=== PATIENT | male | born 2000 | race Caucasian/White ===

== ENCOUNTER 2021-11-19 13:27 | Outpatient (CLI) | payer BC, SELFPAY ==
--- NOTE | ~2021-11-19 | US_ITS ---
EXAMINATION: US scrotum doppler DATE: 11/19/2021 14:45 INDICATION: Right testicular pain. TECHNIQUE: Grayscale and Doppler ultrasound images of the testes were obtained. COMPARISON: None. FINDINGS: The right testis measures 4.5 x 3.0 x 2.1 cm. The left testis measures 3.9 x 3.0 x 2.2 cm. There is normal vascular flow to both testes. The right epididymis is normal with normal vascular benedicto w. The left epididymis is normal with normal vascular flow. There is a hydrocele. There is a left-pierre ed varicocele. IMPRESSION: 1. No etiology for the patient's symptoms. Reviewed, dictated and finalized at location A. L TRANSCRIPTIONIST
== END 2021-11-19 13:28 | disposition home or self-care (01) ==
PROVIDERS: PCP Family Medicine; Visit Provider Family Medicine
DX: N50.811 Right testicular pain (principal); N43.3 Hydrocele, unspecified
CPT/HCPCS: 76870; 93976

== ENCOUNTER → 2022-01-06 15:12 | Outpatient (CLI) | payer BC, SELFPAY ==
--- NOTE | ~2022-01-06 | XR_ITS ---
XR abdomen/kub 1V 01/06/2022 15:51 INDICATION: Right ureteral stone TECHNIQUE: KUB COMPARISON: None FINDINGS: Bowel gas pattern is normal. There is no evidence of free air, mass, organomegaly, ascites or obstruction. No abnormal calculi are seen. The bones appear intact. IMPRESSION: 1: No acute abdominal abnormality identified. Reviewed, dictated and finalized at location B. ANCE OFFICER
== END ==
PROVIDERS: PCP Family Medicine; Visit Provider Urology
DX: N20.1 Calculus of ureter (principal)
CPT/HCPCS: 74018

== ENCOUNTER 2022-01-23 01:01 | Day surgery (SDC) | payer BC, SELFPAY ==
[2022-01-15 14:43] VITALS: BMI 23.6
--- NOTE | 2022-01-15 14:48 | PC.NURSE ---
Report to the Outpatient Waiting Room, entrance under the green pavilion located off [facility], at time 1145 on date 01/23/22. OR Time: 1345. - You and your visitor will be asked a series of questions to screen for COVID 19 for your protection. - A mask is required within the hospital. One visitor will be allowed to accompany the patient into the hospital. Patients visitor will be instructed to remain with patient at all times or leave the building. We will allow the visitor to come back to the postoperative area when patient is ready. Preoperative COVID Testing Requirements: No COVID Test needed if: (proof is required; if not received patient will have Rapid Test prior to entry) - Patient has received COVID Vaccine at least 14 days prior to procedure date or - Patient has positive COVID test result within last 90 days of surgery date. COVID Test needed if above criteria is not met Patients may have clear liquids (water, carbonated beverages, clear teas, apple juice) until 3 hours prior to surgery with a maximum of 20 ounces. - No food from midnight until time of surgery Take the following medications with a SIP of water the morning of surgery: NONE Medications to discontinue per physician: N/A Date to take last dose: N/A Please no make-up, nail divehi, hairspray, perfume, deodorant, or body powder the day of surgery. No jewelry (including any body piercings) or valuables the day of surgery, leave them at home. Please take a shower or bath the night before, or the morning of, surgery with an antibacterial soap. Wear comfortable, loose fitting clothing. - Jewelry must be removed prior to entering the operating room. Rings and piercings that are not removed may be cut off. - The hospital will not accept responsibility for valuables. - Please leave all valuables, including medications, at home the day of surgery. If you are going home after surgery, a licensed fleet driver must drive you home. - NO public transportation without another adult. - We recommend that an adult stay with you for 24 hours following discharge. - We also recommend that you do not drive, make important decision, drink alcoholic beverages, or take any drugs that were not prescribed by your health care provider for at least 24 hours after your discharge time. Follow any additional instructions given to you from your surgeon. Telephone instructions given to BRAYAN RODRIGUEZ and asked if any additional questions and then verbalized understanding. Patient advised to call surgeon office or pre surgery nurse liaison [phone] if any additional questions.
--- NOTE | 2022-01-22 12:20 | WPDANESEPPF ---
Anes - Initial Pre Proc Eval Procedure: Operation Date: 01/23/22 13:45 Proposed Procedures p Cystoscopy, Right Ureteroscopy, Right Stone Extraction, - Milo Tom MD s Possible Holmium Laser Procedure, Possible Right Stent Placement - Milo Tom MD Date/Time: 01/22/22 12:21 Surgeon: Milo Tom MD Pre Op Diagnosis: right ureteral stone Patient Data Age: 21 Gender: M Height: 1.65 m Weight: 64.41 kg Allergies Allergy/AdvReac Type Severity Reaction Status Date / Time tramadol Allergy Intermediate Confusion Verified 01/23/22 12:02 Home Medications Medication Instructions Recorded Confirmed Type No Home Medications 11/26/21 01/23/22 History Patient hx anesthesia problems: none Family hx anesthesia problems: none Results Review: All pre-operative results and documents have been reviewed as part of the pre-operative evaluation. ON LICENSE OF [facility] Past Medical History Medical History (Updated 01/22/22 @ 12:39 by Juan M Weinstein MD) Anxiety Attention deficit hyperactivity disorder, predominantly inattentive type Depression Ureteral stone Family History Family History Mother Breast cancer Grandparent Heart problem Cerebrovascular accident Social History Social History Smoking status: Never smoker Alcohol intake: never Substance use: never Substance use type: does not use Living arrangements: with family Spiritual care concerns: No Anes - Eval Final PreProcedure Day of Procedure 01/22/22 12:21 Patient weight: normal Heart: regular rate and rhythm Lungs: clear to auscultation and normal air movement Airway: Mallampati scale class II Neurological: alert and oriented Last oral intake: >/= 8 hours ASA classification: II Emergent: no Anesthetic plan: proceed Anesthesia type and monitoring: general GIVS and LMA Results Review: All pre-operative results and documents have been reviewed as part of the pre-operative evaluation. Informed Consent: The patient's anesthetic plan and its attendant risks and benefits were discussed with the patient/family/POA. Questions were solicited and answers provided to the satisfaction of the patient/family/POA.
[2022-01-23] VITALS (7 sets, daily range): BP systolic 112–123; BP diastolic 65–77; PULSE 66–86; RESP 10–20; TEMP 36.5–36.8; O2SAT 97–100
--- NOTE | ~2022-01-23 | XR_ITS ---
EXAMINATION: XR fluoroscopy no charge EXAM DATE: 01/23/2022 13:44 INDICATION: Right-sided stone extraction. TECHNIQUE: Fluoroscopy used during right stone extraction performed by Dr. Milo Tom MD. R adiologist was not present for the imaging or procedure. Total fluoroscopic time of 15 seconds. The DAP for this procedure was 0.12 mGym2. A total of 4 images sent to PACS from the exam. FINDINGS: Right ureter was cannulated, wire, catheter extending proximally. Correlate with procedur e note. IMPRESSION: Fluoroscopy used during procedure. Reviewed, dictated and finalized at location A. EE MACHINE TECHNICIAN
--- NOTE | 2022-01-23 06:18 | WPDHPUPDATE1 ---
History and Physical Update Update Date/Time: 01/23/22 06:18 History and Physical has been reviewed, including an updated exam of the patient. There are NO changes in the patient's condition. Risks, benefits, and alternatives have been discussed and questions answered. Patient agrees to proceed with procedure.
[2022-01-23] MEDS: LACTATED RINGERS 1,000 ML 30 ML IV CONT (12:20)
--- NOTE | 2022-01-23 13:52 | P.OP_ITS ---
Procedure Note - Detailed Date of Procedure 01/23/22 Pre-op Diagnosis Right ureteral stones Post-op Diagnosis Same Procedure Performed Cystoscopy, right ureteroscopy with ureteral stone extraction Surgeon Milo Tom MD Anesthesia General Description of Procedure The patient was brought to the operative suite where he is prepped and draped in a routine sterile fashion while in the dorsal lithotomy position after the uneventful induction of a general LMA anesthetic. A 19F rigid cystoscope was placed in the bladder. There are no urethral strictures. His prostatic urethra measures, approximately, 1.0cm with no median lobe enlargement. The bladder mucosa was endoscopically normal without hyperemia or neoplasm. There was a single, orthotopic ureteral orifice bilaterally. A 0.035 glidewire was advanced into the right renal pelvis under fluoroscopy. The distal ureter was dilated with an 8F/10F ureteral dilator. Ureteroscopy was undertaken with a short, tapered, semi-rigid ureteroscope and two stones was extracted with ease using a 1.9F Actimize disposable stone basket. Due to the ease of this manipulation I opted not to place a ureteral stent. The patient's bladder was emptied and was taken to the recovery room having tolerated this procedure well. Drains No Packing No Pathology None sent Complications No immediate complications Condition Stable Disposition PACU
[2022-01-23] MEDS: fentaNYL CITRATE INJ (*CRX) 100 MCG/2 ML VIAL 25 MCG IV PUSH ×4 (14:03→14:23)
--- NOTE | 2022-01-23 14:11 | SUR.PHASEI ---
1410: simple mask removed.
[2022-01-23] MEDS: oxyCODONE HCL (*CRX) 5 MG TAB IR PO (14:50)
== END 2022-01-23 15:08 | disposition home or self-care (01) ==
PROVIDERS: PCP Family Medicine; Visit Provider Urology
PROC: (CPT 52352; principal; 2022-01-23 13:45)
DX: N20.1 Calculus of ureter (principal); F41.8 Other specified anxiety disorders; F90.0 Attention-deficit hyperactivity disorder, predominantly inattentive type
CPT/HCPCS: 52352; 82365; 88300; A9270; C1769; J1100; J2250; J2405; J2704; J3010; J7120; Q9966

== ENCOUNTER 2023-01-08 14:34 | Outpatient (CLI) | payer BC, SELFPAY ==
[2023-01-08 20:30] LABS: Kit Draw Collected
== END 2023-01-08 14:35 | disposition home or self-care (01) ==
LOC: ANHGOSHLAB 14:36
PROVIDERS: PCP Family Medicine; Visit Provider Family Medicine
DX: Z00.00 Encounter for general adult medical examination without abnormal findings (principal); F32.A Depression, unspecified; F41.9 Anxiety disorder, unspecified; R53.83 Other fatigue
CPT/HCPCS: 36415

== ENCOUNTER 2023-11-17 12:29 | Outpatient (CLI) | payer BC, SELFPAY ==
[2023-11-19 19:51] LABS: Immunoglobulin A 196 mg/dL (47-310); TTG IGA AB <1.0 U/mL (<15.0)
== END 2023-11-17 12:30 | disposition home or self-care (01) ==
LOC: ANHGOSHLAB 12:31
PROVIDERS: PCP Family Medicine; Visit Provider Family Medicine
DX: R19.8 Other specified symptoms and signs involving the digestive system and abdomen (principal)
CPT/HCPCS: 36415; 82784; 86364

== ENCOUNTER 2024-02-24 19:05 | Emergency (ER) | payer BC, SELFPAY ==
--- NOTE | ~2024-02-24 | XR_ITS ---
EXAMINATION: XR chest 2V 02/24/2024 19:20 INDICATION: Chest pain PROCEDURE: 2 view chest COMPARISON: No prior studies for comparison. FINDINGS: The lungs are clear. The cardiomediastinal silhouette is within normal limits. There are no pleural effusions. There is no pneumothorax suspected. IMPRESSION: 1: NO ACUTE CARDIOPULMONARY DISEASE. Reviewed, dictated and finalized at location A.
--- NOTE | 2024-02-24 19:12 | ECG_ITS ---
SEE SCANNED COPY FOR CONFIRMED REPORT MTDD
[2024-02-24 19:34] VITALS: BP 117/75; PULSE 72; RESP 18; TEMP 36.7; O2SAT 99
[2024-02-24 19:52] LABS: Basophils Percent Auto 0.2 % (0.2-1.2); Eosinophils Absolute Auto 0.1 K/mm3 (0-0.3); Eosinophils Percent Auto 0.8 % (0-4.4); Hematocrit 43.2 % (42.0-52.0); Hemoglobin 14.8 g/dL (14.0-18.0); Immature Granulocyte Absolute 0.02 K/mm3 (0.00-0.031); Immature Granulocyte Percent A 0.2 % (0-0.5); Lymphocytes Absolute Auto 2.14 K/mm3 (0.9-3.2); Lymphocytes Percent Auto 24.3 % (18.3-44.2); Mean Corpuscular HGB Conc 34.3 g/dl (32-36); Mean Corpuscular Hemoglobin 30.1 pg (26-34); Mean Corpuscular Volume 87.8 fl (80-100); Mean Platelet Volume 9.2 fl (7.4-10.4); Monocytes Absolute Auto 0.9 K/mm3 (0.1-0.6); Monocytes Percent Auto 10.2 % (2.6-8.5); Neutrophils Absolute Auto 5.7 K/mm3 (1.3-6.7); Neutrophils Percent Auto 64.3 % (45.5-73.1); Platelet Count Result 369 k/mm3 (150-375); Red Blood Count 4.92 M/mm3 (4.6-6.20); White Blood Count 8.8 K/mm3 (4.5-10.0)
[2024-02-24 20:03] LABS: INR 0.9; Prothrombin Time 12.9 Seconds (11.1-14.7)
[2024-02-24 20:04] LABS: Alanine Aminotransferase 17 U/L (6-50); Albumin Level 4.9 g/dL (3.5-5.1); Alkaline Phosphatase 72 U/L (38-126); Anion Gap 9 mmol/L (4-12); Aspartate Amino Transferase 24 U/L (17-59); Bilirubin,Total 0.4 mg/dL (0.2-1.3); Blood Urea Nitrogen 16 mg/dL (9-20); Calcium 9.4 mg/dL (8.4-10.2); Carbon Dioxide 23 mmol/L (22-30); Chloride 105 mmol/L (98-107); Estimated CRCL calculation 134 ml/min; Estimated Glomerular Filt Rate > 60; Glucose 94 mg/dL (65-110); Lipase 48 U/L (23-300); Partial Thromboplastin Time 30.9 Seconds (22.3-36.8); Potassium 3.9 mmol/L (3.4-5.0); Sodium 137 mmol/L (137-145)
[2024-02-24 20:15] LABS: Troponin I < 0.012 ng/mL (0.000-0.034)
[2024-02-24 22:48] LABS: Troponin I < 0.012 ng/mL (0.000-0.034)
[2024-02-24 23:53] VITALS: O2SAT 98
[2024-02-25] MEDS: BELLADONNA ALK/PHENOB ELIX 10 ML, MAG HYDROX/ALUMINUM HYD/SIMETH 30 ML, LIDOCAINE HCL 2... PO (01:14)
[2024-02-25] MEDS: ACETAMINOPHEN 500 MG TABLET 1000 MG PO (01:14)
[2024-02-25] MEDS: DICYCLOMINE HCL 10 MG CAPSULE 20 MG PO (01:14)
[2024-02-25] MEDS: FAMOTIDINE 20 MG TABLET PO (01:17)
--- NOTE | 2024-02-25 01:19 | ED.CHESTPAIN ---
HPI - Chest Pain General Chief Complaint: Chest Pain Stated Complaint: epigastric pain Time Seen by Provider: 02/25/24 00:00 Source: patient Mode of arrival: ambulatory Limitations: no limitations History of Present Illness HPI narrative: Patient is a 23-year-old male who presents the ED with report of epigastric pain, chest pain. Patient reports having ongoing and intermittent pain for the last 3 days. States pain became worse around 6:00 p.m. last night, which prompted his presentation. Has tried Tums and [id number] pain medication at home without much improvement. Denies significant aggravating or alleviating factors. Reports nausea, denies significant vomiting, diarrhea, constipation, rectal bleeding, melena, fevers, shortness of breath. Has never had pain like this before. Related Data Home Medications Medication Instructions Recorded Confirmed fluoxetine 20 mg capsule 20 mg PO 04/23/23 11/17/23 bicalutamide 50 mg tablet 50 mg PO 11/17/23 11/17/23 estradiol 2 mg tablet 2 mg PO 11/17/23 11/17/23 progesterone micronized 100 mg 100 mg PO 11/17/23 11/17/23 capsule Allergies Allergy/AdvReac Type Severity Reaction Status Date / Time tramadol Allergy Intermediate Confusion Verified 11/17/23 11:48 Review of Systems Review of Systems: CONSTITUTIONAL: Denies fever, chills, or sweats. CARDIOVASCULAR: See HPI. RESPIRATORY: Denies cough or dyspnea. GASTROINTESTINAL: See HPI. MUSCULOSKELETAL: Denies back pain, extremity pain, myalgia. All systems reviewed & are unremarkable except as noted in HPI and below PMFSH Past Medical History Medical History Abnormal cystoscopy r ureteral stones x 2 removed Anxiety Attention deficit hyperactivity disorder, predominantly inattentive type Depression Right testicular pain Ureteral stone Ureteral stone with hydronephrosis Surgical History Surgical History H/O nephrolithotomy with removal of calculi Family History Family History Mother Breast cancer Grandparent Heart problem Cerebrovascular accident Social History Social History Smoking status: Never smoker Alcohol intake: never Substance use: never Substance use type: does not use Lack of Transportation: No Lack of Food: Often True Current Housing: I Have Housing Concerned About Future Housing: No Difficulty Paying Gas/Electric Bills: No Difficulty Paying for Meds: No Currently Unemployed: No Education: High School Diploma/GED Difficulty w/ Childcare or Family Care: No Living arrangements: with family Spiritual care concerns: No Agree to blood products: Yes Exam Narrative: GENERAL: Well appearing, well-nourished, non-toxic, in no acute distress. HEAD: Normocephalic, atraumatic. RESPIRATORY: Airway patent, respirations nonlabored. Clear to auscultation bilaterally, no rales, rhonchi, wheezing. CARDIOVASCULAR: Regular rate and rhythm ABDOMINAL: Soft, mild diffuse tenderness in epigastric region into LUQ, nondistended. Normoactive BS. MUSCULOSKELETAL: Moves all extremities. No gross deformities. SKIN: Warm, dry, normal color. NEURO: A&O X3. Speech clear. PSYCHIATRIC: Appropriate mood and affect. Normal interaction. Course Vital Signs Vital signs: Vital Signs Temperature 98.1 F 02/24/24 19:34 Pulse Rate 72 02/24/24 19:34 Respiratory Rate 18 02/24/24 19:34 Blood Pressure 117/75 02/24/24 19:34 Pulse Oximetry 99 02/24/24 19:34 Oxygen Delivery Room Air 02/24/24 19:34 Temperature 98.1 F 02/24/24 19:34 Pulse Rate 72 02/24/24 19:34 Respiratory Rate 18 02/24/24 19:34 Blood Pressure 117/75 02/24/24 19:34 Pulse Oximetry 98 02/24/24 23:53 Oxygen Delivery Room Air 02/24/24 23:53
[2024-02-25 01:58] LABS: Troponin I < 0.012 ng/mL (0.000-0.034)
[2024-02-25 03:27] VITALS: BP 122/87; PULSE 64; RESP 18; O2SAT 100
== END 2024-02-25 03:28 | disposition home or self-care (01) ==
PROVIDERS: Emergency Medicine; Emergency Provider Physician Assistant; PCP Family Medicine
DX: K29.00 Acute gastritis without bleeding (principal); F41.9 Anxiety disorder, unspecified; F90.0 Attention-deficit hyperactivity disorder, predominantly inattentive type; Z87.442 Personal history of urinary calculi
CPT/HCPCS: 36415; 71046; 80053; 83690; 84484; 85025; 85610; 85730; 93005; 99284; A9270

== ENCOUNTER 2024-03-03 20:44 | Emergency (ER) | payer BC, SELFPAY ==
[2024-03-03 20:47] VITALS: BP 136/91; PULSE 96; RESP 18; TEMP 36.6; O2SAT 100
--- NOTE | 2024-03-03 21:05 | ECG_ITS ---
SEE SCANNED COPY FOR CONFIRMED REPORT MTDD
[2024-03-03 21:25] VITALS: RESP 17
[2024-03-03 21:26] VITALS: O2SAT 99
[2024-03-03] MEDS: SODIUM CHLORIDE 0.9% IV 1,000 ML 999 ML IV CONT ×2 (21:26→23:12)
[2024-03-03 21:30] LABS: Basophils Percent Auto 0.2 % (0.2-1.2); Eosinophils Percent Auto 0.1 % (0-4.4); Hematocrit 45.1 % (42.0-52.0); Hemoglobin 15.6 g/dL (14.0-18.0); Immature Granulocyte Absolute 0.02 K/mm3 (0.00-0.031); Immature Granulocyte Percent A 0.2 % (0-0.5); Lymphocytes Absolute Auto 1.42 K/mm3 (0.9-3.2); Lymphocytes Percent Auto 15.5 % (18.3-44.2); Mean Corpuscular HGB Conc 34.6 g/dl (32-36); Mean Corpuscular Hemoglobin 30.4 pg (26-34); Mean Corpuscular Volume 87.7 fl (80-100); Mean Platelet Volume 9.2 fl (7.4-10.4); Monocytes Absolute Auto 0.6 K/mm3 (0.1-0.6); Monocytes Percent Auto 6.7 % (2.6-8.5); Neutrophils Absolute Auto 7.1 K/mm3 (1.3-6.7); Neutrophils Percent Auto 77.3 % (45.5-73.1); Platelet Count Result 425 k/mm3 (150-375); Red Blood Count 5.14 M/mm3 (4.6-6.20); Red Cell Distribution Width 11.9 % (11.5-14.5); White Blood Count 9.2 K/mm3 (4.5-10.0)
[2024-03-03 21:33] VITALS: BP 131/84; PULSE 105; RESP 17; O2SAT 100
[2024-03-03 21:39] LABS: Acetaminophen < 10 ug/mL (10-30); Ethanol < 10 mg/dL (<10); Salicylate 2.6 mg/dL (2-20)
--- NOTE | 2024-03-03 21:41 | PC.NURSE ---
Pt stated taking one of each of the prescriptions prescribed, with the exception of 2 excedrin: zolpidem 12.5 mg excedrin 250 mg ibuprofen 200 mg bupropion 150 mg progesterone 100 mg estradiol 2 mg
[2024-03-03 21:42] LABS: Alanine Aminotransferase 17 U/L (6-50); Albumin Level 5.3 g/dL (3.5-5.1); Alkaline Phosphatase 82 U/L (38-126); Anion Gap 12 mmol/L (4-12); Aspartate Amino Transferase 25 U/L (17-59); Bilirubin,Total 0.6 mg/dL (0.2-1.3); Blood Urea Nitrogen 16 mg/dL (9-20); Calcium 11.3 mg/dL (8.4-10.2); Carbon Dioxide 23 mmol/L (22-30); Chloride 102 mmol/L (98-107); Estimated CRCL calculation 116 ml/min; Estimated Glomerular Filt Rate > 60; Glucose 101 mg/dL (65-110); Potassium 3.7 mmol/L (3.4-5.0); Sodium 137 mmol/L (137-145)
--- NOTE | 2024-03-03 21:52 | ED.OVERDOSE ---
HPI - Overdose General Chief Complaint: Overdose <PEYTON Christiansen Last Filed: 03/04/24 03:50> Stated Complaint: intentional overdose <PEYTON Christiansen Last Filed: 03/04/24 03:50> Time Seen by Provider: 03/03/24 21:15 <PEYTON Christiansen Last Filed: 03/04/24 03:50> Source: patient and family <PEYTON Christiansen Last Filed: 03/04/24 03:50> Mode of arrival: ambulatory <PEYTON Christiansen Last Filed: 03/04/24 03:50> Limitations: no limitations <PEYTON Christiansen Last Filed: 03/04/24 03:50> History of Present Illness HPI Narrative: Patient is a 23 y/o transgender male transitioning to female who presents to the ED with family with report of intentional overdose. Patient reports she was feeling sad and decided to take pills around 745 pm tonight in an overdose/suicide attempt. Patient took 1 pill of estradiol, progesterone, ibuprofen, Wellbutrin, zolpidem, and 2 pills of Excedrin. She states she thought she would fall asleep and in her sleep. She left her significant other a note stating she did not think the pills would kill her, but states she was sorry and that she loved her. Patient was then brought here for further evaluation. Patient feels sleepy and fatigued currently. Complains of some generalized abdominal discomfort. Denies nausea or vomiting. Denies dizziness, lightheadedness, palpitations. Patient denies any other drug or alcohol use. Denies previous suicide attempts. States she has been having suicidal thoughts for quite some time, but has never acted on them. Mother at bedside reports patient was recently diagnosed with borderline personality disorder. <PEYTON Christiansen Last Filed: 03/04/24 03:50> Related Data Home Medications: Home Medications Medication Instructions Recorded Confirmed fluoxetine 20 mg capsule 20 mg PO 04/23/23 11/17/23 bicalutamide 50 mg tablet 50 mg PO 11/17/23 11/17/23 estradiol 2 mg tablet 2 mg PO 11/17/23 11/17/23 progesterone micronized 100 mg 100 mg PO 11/17/23 11/17/23 capsule <Maria Teresa Reid PA-C - Last Filed: 03/04/24 03:50> Allergies/Adverse Reactions: Allergies Allergy/AdvReac Type Severity Reaction Status Date / Time tramadol Allergy Intermediate Confusion Verified 03/03/24 20:53 <Maria Teresa Reid PA-C - Last Filed: 03/04/24 03:50> Review of Systems Review of Systems: CONSTITUTIONAL: Denies fever, chills, or sweats. ENT: Denies vision changes, rhinorrhea, congestion, sore throat. CARDIOVASCULAR: Denies chest pain. RESPIRATORY: Denies dyspnea. GASTROINTESTINAL: See HPI NEUROLOGIC: Denies headache, dizziness, numbness, or weakness. PSYCHIATRIC: See HPI <Maria Teresa Reid PA-C - Last Filed: 03/04/24 03:50> All systems reviewed & are unremarkable except as noted in HPI and below <Maria Teresa Reid PA-C - Last Filed: 03/04/24 03:50> [facility] Past Medical History Medical History: Medical History (Updated 03/05/24 @ 00:00 by David Ortiz) Abnormal cystoscopy r ureteral stones x 2 removed Anxiety Attention deficit hyperactivity disorder, predominantly inattentive type Borderline personality disorder Depression Right testicular pain Ureteral stone Ureteral stone with hydronephrosis <Maria Teresa Reid PA-C - Last Filed: 03/04/24 03:50> Surgical History Surgical History: Surgical History H/O nephrolithotomy with removal of calculi <Maria Teresa Reid PA-C - Last Filed: 03/04/24 03:50> Family History Family History: Family History Mother Breast cancer Grandparent Heart problem Cerebrovascular accident <Maria Teresa Reid PA-C - Last Filed: 03/04/24 03:50> Social History Social History: Social History (Reviewed 03/03/24 @ 22:19 by Maria Teresa Luna
[2024-03-03 22:03] VITALS: O2SAT 100
[2024-03-03 22:04] LABS: SARS-CoV-2 RNA PCR Negative (Negative)
--- NOTE | 2024-03-03 22:22 | PC.NURSE ---
Nelia with poison control was contacted. She states since the patient is prescribed these medications and only took 1 of each that she does not expect many, if any, side effects. She states peak for the zolpidem has passed since the ingestion. Bupropion peak is 5 hours so she recommends monitoring patient at least until 0030. She did recommend obtaining basic labs such as tylenol, aspirin, and etoh which have already been ordered. Provider made aware.
[2024-03-03 22:44] LABS: Appearance Urine Clear (Clear); Bacteria Urine None Seen /hpf; Bilirubin Urine Negative (Negative); Blood Urine 1+ (Negative); Color Urine Yellow (Yellow); Glucose Urine UA Negative (Negative); Ketones Urine 4+ mg/dL (Negative); Leukocyte Esterase Ur Negative LEU/UL (Negative); Nitrate Urine Negative (Negative); Protein Urine Negative (Negative); RBC Urine 0-2 /hpf (0-2); Specific Grav Ur 1.029 (1.001-1.035); Squamous Epithelial Cell Urine Occasional /hpf (Few); Urobilinogen Urine 0.2 mg/dL (<2.0); WBC Urine 0-5 /hpf (0-3); pH Urine 5.5 (5.0-9.0)
[2024-03-03 22:48] LABS: Acetaminophen < 10 ug/mL (10-30)
[2024-03-03 22:49] LABS: Add Urine Microscopic? YES
[2024-03-03 22:59] LABS: Amphetamine Screen Urine Negative (Negative); Barbiturate Screen Urine Negative (Negative); Benzodiazepines Screen Urine Negative (Negative); Cannabinoid Screen Urine Negative (Negative); Cocaine Screen Urine Negative (Negative); Methadone Screen Urine Negative (Negative); Opiate Screen Urine Negative (Negative); Phencyclidine Screen Urine Negative (Negative)
--- NOTE | 2024-03-04 00:44 | PC.NURSE ---
[facility] called to evaluate patient
--- NOTE | 2024-03-04 04:21 | PC.NURSE ---
case number from poison control . closed at [id number] on 03/04/2021.
[2024-03-04 04:46] LABS: Alanine Aminotransferase 13 U/L (6-50); Albumin Level 3.9 g/dL (3.5-5.1); Alkaline Phosphatase 59 U/L (38-126); Anion Gap 8 mmol/L (4-12); Aspartate Amino Transferase 16 U/L (17-59); Bilirubin,Total 0.4 mg/dL (0.2-1.3); Blood Urea Nitrogen 13 mg/dL (9-20); Carbon Dioxide 18 mmol/L (22-30); Chloride 112 mmol/L (98-107); Estimated CRCL calculation 134 ml/min; Estimated Glomerular Filt Rate > 60; Glucose 96 mg/dL (65-110); Potassium 3.6 mmol/L (3.4-5.0); Sodium 138 mmol/L (137-145)
[2024-03-04 04:48] LABS: Acetaminophen < 10 ug/mL (10-30); Salicylate 5.1 mg/dL (2-20)
--- NOTE | 2024-03-04 05:29 | PC.NURSE ---
Chart faxed to [facility] by group social worker.
[2024-03-04 06:34] VITALS: BP 130/76; PULSE 74; RESP 15; O2SAT 100
--- NOTE | 2024-03-04 06:36 | PC.NURSE ---
Patient accepted at [facility] by Dr. Shaver
[2024-03-04 07:30] VITALS: BP 118/70; PULSE 74; RESP 16; TEMP 36.6; O2SAT 100
[2024-03-04 08:30] VITALS: BP 124/68; PULSE 76; RESP 16; TEMP 36.6; O2SAT 99
[2024-03-04 09:30] VITALS: BP 122/68; PULSE 74; RESP 16; TEMP 36.6; O2SAT 99
[2024-03-04 10:46] VITALS: BP 118/68; PULSE 72; RESP 16; TEMP 36.6; O2SAT 100
[2024-03-04 12:02] VITALS: BP 118/70; PULSE 76; RESP 16; TEMP 36.6; O2SAT 99
== END 2024-03-04 12:03 ==
PROVIDERS: Emergency Medicine; Emergency Provider Physician Assistant; PCP Family Medicine
DX: T43.292A Poisoning by other antidepressants, intentional self-harm, initial encounter (principal); T38.5X2A Poisoning by other estrogens and progestogens, intentional self-harm, initial encounter; T39.312A Poisoning by propionic acid derivatives, intentional self-harm, initial encounter; T42.6X2A Poisoning by other antiepileptic and sedative-hypnotic drugs, intentional self-harm, initial encounter; F32.A Depression, unspecified; F64.0 Transsexualism; Z11.52 Encounter for screening for COVID-19; F41.9 Anxiety disorder, unspecified; F90.0 Attention-deficit hyperactivity disorder, predominantly inattentive type; F60.3 Borderline personality disorder; Z87.442 Personal history of urinary calculi
CPT/HCPCS: 36415; 80053; 80307; 81001; 83735; 84443; 85025; 87635; 93005; 96360; 96361; 99285; J7030